=== PATIENT | female | born 1985 | race Caucasian/White ===

== ENCOUNTER 2022-01-27 21:35 | Inpatient (IN) | payer OTHER ==
[~2022-01-27] VITALS: Ht 170.2 cm; Wt 109.0 kg
[~2022-01-27 21:35] MED LIST: ALBU17AE27 IH
[2022-01-27] MEDS ORDERED: SODIUM CHLORIDE 0.9% 1,000 ML IV ONE (22:30)
[2022-01-27 22:41] LABS: COVID AG,FIA SOURCE NASAL SWAB
[2022-01-27 23:20] LABS: APPEARANCE,URINE HAZY (CLEAR); BILIRUBIN,URINE NEGATIVE (NEGATIVE); GLUCOSE, URINE (UA) NEGATIVE (NEGATIVE); KETONES,URINE TRACE mg/dL (NEGATIVE); LEUKOCYTE ESTERASE ,URINE NEGATIVE (NEGATIVE); NITRATE,URINE NEGATIVE (NEGATIVE); OCCULT BLOOD,URINE NEGATIVE (NEGATIVE); PROTEIN,URINE TRACE mg/dL (NEGATIVE); SPECIFIC GRAVITIY, URINE 1.026 (1.003-1.030); UROBILINOGEN,URINE <=1.0 mg/dL (<=1.0)
[2022-01-27 23:21] LABS: BASOPHILS % (AUTO) 0.3 % (0.0-2.0); EOSINOPHILS % (AUTO) 1.2 % (1.0-6.0); HEMATOCRIT 37.1 % (36-46); HEMOGLOBIN 12.7 g/dL (12.0-16.0); LYMPHOCYTES # (AUTO) 1.8 K/uL (1.0-4.8); MEAN CORPUSCULAR HEMOGLOBIN 29.4 pg (26.0-34.0); MEAN CORPUSCULAR HGB CONC 34.1 G/dL (31.0-37.0); MEAN CORPUSCULAR VOLUME 86 fL (80-100); MONOCYTES # (AUTO) 0.4 K/uL (0.1-1.0); MONOCYTES % (AUTO) 5.2 % (2.0-9.0); NEUTROPHILS # (AUTO) 5.6 K/uL (1.8-7.7); NEUTROPHILS % (AUTO) 70.3 % (40.0-70.0); PLATELET COUNT (AUTO) 306 K/uL (150-450); RED BLOOD CELL COUNT(AUTO) 4.32 MIL/uL (4.00-5.20); RED CELL DISTRIBUTION WIDTH 15.1 % (11.5-14.5)
[2022-01-27 23:28] LABS: AMPHET/METH SCREEN,URINE POSITIVE (NEGATIVE); BARBITURATE SCREEN, URINE NEGATIVE (NEGATIVE); BENZODIAZEPINES SCREEN,URINE NEGATIVE (NEGATIVE); CANNABINOID SCREEN,URINE NEGATIVE (NEGATIVE); COCAINE SCREEN,URINE NEGATIVE (NEGATIVE); METHADONE SCREEN, URINE POSITIVE (NEGATIVE); OPIATE SCREEN,URINE NEGATIVE (NEGATIVE)
[2022-01-27 23:29] LABS: ANION GAP 11 mmol/L (8-16); CALCIUM, TOTAL 9.5 mg/dL (8.8-10.5); CARBON DIOXIDE 25 mmol/L (22-29); CHLORIDE 102 mmol/L (98-107); CREATININE 1.16 mg/dL (0.60-1.30); GLUCOSE,RANDOM 97 mg/dL (70-110); POTASSIUM 3.8 mmol/L (3.5-5.1); SODIUM SERUM 138 mmol/L (136-145); UREA NITROGEN, BLOOD 17 mg/dL (7-18)
[2022-01-27 23:29] LABS: PHENCYCLIDINE SCREEN,URINE NEGATIVE (NEGATIVE)
[2022-01-27 23:30] LABS: GLOMERULAR FILTR. RATE CALC 53 mL/min (>60)
[2022-01-27] MEDS ORDERED: ONDANSETRON HCL 4 MG/2 ML VIAL IVP ONE (23:30)
[2022-01-27] MEDS ORDERED: LOPERAMIDE HCL 2 MG CAPSULE PO PRN (23:30)
[2022-01-27 23:35] LABS: BACTERIA,URINE None Seen /HPF (None Seen); RBC,URINE 0-2 /HPF (0-2); WBC,URINE 0-2 /HPF (0-5)
[2022-01-27 23:35] LABS: ALANINE AMINOTRANSFERASE 23 U/L (12-78); ALBUMIN 3.8 g/dL (3.4-5.0); ALKALINE PHOSPHATASE 106 U/L (46-116); ASPARTATE AMINOTRANSFERASE 15 U/L (15-37); BILIRUBIN,TOTAL 0.4 mg/dL (0.1-1.0); LIPASE 190 U/L (73-393); TOTAL PROTEIN, SERUM 8.6 g/dL (6.4-8.2)
[2022-01-28 02:40] VITALS: BP 133/74
[2022-01-28 08:12] VITALS: BP 106/57
[2022-01-28] MEDS ORDERED: MAGNESIUM SULFATE 2 GM, MVI, ADULT NO.1 WITH VIT K 10 ML, THIAMINE 100 MG, FOLIC ACID 1... IV ONE ×5 (09:45)
[2022-01-28] MEDS: METOCLOPRAMIDE HCL 5 MG/ML 2 ML VIAL IVP PRN (13:00)
[2022-01-28] MEDS: ACETAMINOPHEN/CODEINE 300-15 MG TABLET PO PRN ×2 (14:22→20:30)
[2022-01-28] MEDS: DICYCLOMINE HCL 10 MG CAPSULE PO PRN (14:22)
[2022-01-28 15:50] VITALS: BP 119/76
[2022-01-28 19:42] VITALS: BP 131/79
[2022-01-28] MEDS: TEMAZEPAM 15 MG CAPSULE PO SCH (20:26)
[2022-01-29] MEDS: LORazepam 2 MG/ML VIAL IVP PRN ×2 (02:56→10:56)
[2022-01-29 03:51] VITALS: BP 129/54
[2022-01-29] MEDS: ACETAMINOPHEN/CODEINE 300-15 MG TABLET PO PRN ×2 (07:39→17:10)
[2022-01-29] MEDS: DICYCLOMINE HCL 10 MG CAPSULE PO PRN ×2 (07:53→17:05)
[2022-01-29] MEDS: METOCLOPRAMIDE HCL 5 MG/ML 2 ML VIAL IVP PRN ×2 (07:54→17:09)
[2022-01-29 08:37] VITALS: BP 118/57
[2022-01-29 12:53] LABS: ANION GAP 9 mmol/L (8-16); CALCIUM, TOTAL 9.5 mg/dL (8.8-10.5); CARBON DIOXIDE 21 mmol/L (22-29); CHLORIDE 105 mmol/L (98-107); CREATININE 0.96 mg/dL (0.60-1.30); GLOMERULAR FILTR. RATE CALC > 60 mL/min (>60); GLUCOSE,RANDOM 94 mg/dL (70-110); POTASSIUM 3.3 mmol/L (3.5-5.1); SODIUM SERUM 135 mmol/L (136-145); UREA NITROGEN, BLOOD 13 mg/dL (7-18)
[2022-01-29] MEDS ORDERED: POTASSIUM CHLORIDE 20 MEQ ER TABLET PO ONE (15:30)
[2022-01-29 16:06] VITALS: BP 136/80
[2022-01-29 19:50] VITALS: BP 119/99
[2022-01-29] MEDS: TEMAZEPAM 15 MG CAPSULE PO SCH (20:26)
[2022-01-30 00:17] VITALS: BP 111/74
[2022-01-30] MEDS: ACETAMINOPHEN/CODEINE 300-15 MG TABLET PO PRN ×2 (00:17→06:25)
[2022-01-30] MEDS: METOCLOPRAMIDE HCL 5 MG/ML 2 ML VIAL IVP PRN (01:10)
[2022-01-30 05:33] VITALS: BP 125/73
[2022-01-30 07:05] LABS: ANION GAP 14 mmol/L (8-16); CALCIUM, TOTAL 9.9 mg/dL (8.8-10.5); CARBON DIOXIDE 20 mmol/L (22-29); CHLORIDE 103 mmol/L (98-107); CREATININE 0.93 mg/dL (0.60-1.30); GLUCOSE,RANDOM 77 mg/dL (70-110); POTASSIUM 3.7 mmol/L (3.5-5.1); SODIUM SERUM 137 mmol/L (136-145); UREA NITROGEN, BLOOD 11 mg/dL (7-18)
[2022-01-30 07:11] LABS: GLOMERULAR FILTR. RATE CALC > 60 mL/min (>60)
[2022-01-30 08:48] VITALS: BP 152/90
[2022-01-30] MEDS: FOLIC ACID 1 MG TABLET PO SCH (09:02)
[2022-01-30] MEDS: THIAMINE 100 MG TABLET PO SCH (09:02)
[2022-01-30] MEDS: MULTIVITAMINS WITH MINERALS, THERAPEUTIC TABLET PO SCH (09:02)
[2022-01-30] MEDS: DICYCLOMINE HCL 10 MG CAPSULE PO PRN ×3 (09:08→23:40)
[2022-01-30] MEDS: ACETAMINOPHEN 325 MG TABLET PO PRN (15:00)
[2022-01-30 15:28] VITALS: BP 144/83
[2022-01-30] MEDS: TEMAZEPAM 15 MG CAPSULE PO SCH (20:00)
[2022-01-30] MEDS: LevETIRAcetam 500 MG TABLET PO SCH (20:00)
[2022-01-30 21:24] VITALS: BP 138/87
[2022-01-31 03:52] VITALS: BP 125/73
[2022-01-31 06:53] LABS: ANION GAP 13 mmol/L (8-16); CALCIUM, TOTAL 9.8 mg/dL (8.8-10.5); CARBON DIOXIDE 22 mmol/L (22-29); CHLORIDE 105 mmol/L (98-107); CREATININE 0.96 mg/dL (0.60-1.30); GLUCOSE,RANDOM 85 mg/dL (70-110); POTASSIUM 3.4 mmol/L (3.5-5.1); SODIUM SERUM 140 mmol/L (136-145); UREA NITROGEN, BLOOD 12 mg/dL (7-18)
[2022-01-31 06:54] LABS: GLOMERULAR FILTR. RATE CALC > 60 mL/min (>60)
[2022-01-31 08:18] VITALS: BP 131/76
[2022-01-31] MEDS: THIAMINE 100 MG TABLET PO SCH (09:08)
[2022-01-31] MEDS: LevETIRAcetam 500 MG TABLET PO SCH (09:08)
[2022-01-31] MEDS: FOLIC ACID 1 MG TABLET PO SCH (09:08)
[2022-01-31] MEDS: MULTIVITAMINS WITH MINERALS, THERAPEUTIC TABLET PO SCH (09:08)
[2022-01-31] MEDS: DICYCLOMINE HCL 10 MG CAPSULE PO PRN (09:08)
[2022-01-31] MEDS: ACETAMINOPHEN 325 MG TABLET PO PRN (09:09)
== END 2022-01-31 12:06 | DRG 101 ==
LOC: EMS 21:35 → 6S 01-28 00:09
PROVIDERS: ADMIT Internal Medicine; ATTEND Internal Medicine
DX: G40.89 Other seizures (principal); F11.13 Opioid abuse with withdrawal; F10.139 Alcohol abuse with withdrawal, unspecified; J45.909 Unspecified asthma, uncomplicated; F15.90 Other stimulant use, unspecified, uncomplicated; Z79.899 Other long term (current) drug therapy; Z20.822 Contact with and (suspected) exposure to COVID-19; Z87.442 Personal history of urinary calculi; Z87.891 Personal history of nicotine dependence; Z88.8 Allergy status to other drugs, medicaments and biological substances
CPT/HCPCS: 80048; 80053; 81001; 83690; 84703; 85025; 99285; G0480; J2060; J2405; J2765; J3411; J3475; J3490; J7030